=== PATIENT | female | born 1985 | race African-American/Black ===

== ENCOUNTER 2016-11-03 23:34 | Emergency (ER) | payer OTHER ==
[~2016-11-03] VITALS: Ht 167.6 cm; Wt 96.2 kg
[~2016-11-03 23:34] MED LIST: MOTRIN 600 MG600 MG PO; MOTRIN800 MG PO; OXYCODONE HCL10 MG PO; PERCOCET 325 MG1 TA2 PO; PERCOCET 325 MG1 TAB PO; PERCOCET 5-3251 EACH PO; PREDNISONE 20MG20 MG PO; PROVENTIL0.09 MG/A1 PO; ROBITUSSIN W/CO10 ML PO; SYMBICORT 80/4.1 PUF INH; ULTRAM(MONOGRAP50 MG PO; ZITHROMAX250 MG PO
[2016-11-04] MEDS ORDERED: MOBIC15 M1 PO (00:01)
--- NOTE | 2016-11-04 00:02 | ED UPPER/LOWER EXTREMITY COMPL ---
History of Present Illness General Chief Complaint: Upper Extremity Injury Stated Complaint: "PER PT I THINK I DISLOCATED MY LT SHOULDER" Source: patient Exam Limitations: no limitations Vital Signs & Intake/Output Vital Signs & Intake/Output Vital Signs Date Time Temp Pulse Resp B/P Pulse O2 O2 Flow FiO2 Ox Delivery Rate 11/03 2350 98 Room Air 11/03 2350 98.7 94 18 133/93 97 Room Air ED Intake and Output 11/04 0000 11/03 1200 Intake Total Output Total Balance Patient 212 lb Weight Allergies Coded Allergies: NO KNOWN ALLERGIES (02/02/14) Triage Note: PT FROM HOME C/O LEFT SHOULDER INJURY? PT STATES LAST YEAR HAD 2 SURGERIES ON LFA FOR HARDWARE AND MESH REMOVAL OF A HERNIA. PT STATES EVER SINCE THEN SHE HAS BEEN TELLING THE SURGEON THAT HER LEFT SHOULDER HURTS FROM THE SURGERY, BUT HE HAS DONE NOTHING. PT STATES THAT ITS HER BONE THAT BOTHERS HER. PT STATES NO INCIDENT OR TRAUMA CAUSED THE LEFT SHOULDER INJURY, 2 DAYS AGO PT DESCRIBES "POPPING" SOUNDS. MARGUERITE RUANO IN FOR EVAL Triage Nurses Notes Reviewed? yes Onset: Abrupt Duration: hour(s):, constant, continues in ED Timing: single episode today Severity: moderate, severe No Modifying Factors: none : No Patient currently breastfeeds: No HPI: 31-year-old female comes into emergency room for evaluation of left shoulder pain. Patient reports that she had surgery in her left forearm and had hardware removed. Patient reports that she's been having pain shooting from her forearm to her left shoulder. Pain in her shoulder with any type of range of motion. Sharp throbbing. Continuous. Denies any other associated symptoms. (JESUS EVERETT,ALDEN) Reconcile Medications Albuterol Sulfate (Proventil Hfa) 90 MCG HFA.AER.AD 2 PUF PO Q6-PRN PRN BREATHING PROBLEMS (Reported) Azithromycin (Zithromax) 250 MG TABLET 250 MG PO DAILY INFECTION TAKE 2 PILLS THE FIRST DAY Budesonide/Formoterol Fumara (Symbicort 80-4.5 Mcg Inhaler) 80 MCG/4.5 MCG PUF 2 PUFF INH BID ASTHMA/COPD (Reported) Ibuprofen (Motrin 600 MG Tab) 600 MG TABLET 1 TAB PO Q8 PRN PAIN Ibuprofen (Motrin) 800 MG TAB 1 TAB PO TID PRN PAIN Meloxicam (Mobic) 15 MG TABLET 1 TAB PO DAILY pain OXYCODONE HCL (Oxycodone HCl) 10 MG TAB 1 TAB PO Q6P PRN severe pain OXYCODONE HCL/ACETAMINOPHEN (Percocet 10-325 MG Tablet) 325 MG/10 MG TAB 1 TAB PO Q8 PRN PAIN OXYCODONE HCL/ACETAMINOPHEN (Percocet 5-325 MG Tablet) 325 MG/5 MG TAB 1-2 TAB PO Q4-6 PRN PRN PAIN SIXTEEN TABS... [id number] Oxycodone HCl/Acetaminophen (Percocet 5-325 MG Tablet) 1 EACH TABLET 1 TAB PO Q6HR PRN PAIN OXYCODONE HCL/ACETAMINOPHEN (Percocet 5-325 MG Tablet) 325 MG/5 MG TAB 1-2 TAB PO Q4-6 PRN PRN PAIN Oxycodone HCl/Acetaminophen (Percocet 5-325 MG Tablet) 5 MG-325 MG TABLET 1 TAB PO TID PRN PAIN OXYCODONE HCL/ACETAMINOPHEN (Percocet 5-325 MG Tablet) 325 MG/5 MG TAB 1-2 TAB PO Q4-6 PRN PRN PAIN Prednisone 20 MG TABLET 2 TAB PO DAILY INFLAMMATION Robitussin AC (Guaifenesin-Codeine Syrup) 200 MG-20 MG/10 ML LIQUID 10 ML PO Q6 PRN COUGH Tramadol HCl (Ultram) 50 MG TAB 1 TAB PO Q6 PRN pain (BRENDA AVALOS,JOE) Past History Travel History Traveled to [place] past 21 day No Medical History Any Pertinent Medical History? see below for history Neurological: NONE EENT: NONE Cardiovascular: NONE Respiratory: asthma Gastrointestinal: NONE Hepatic: NONE Renal: NONE Musculoskeletal: NONE Psychiatric: NONE Endocrine: NONE Blood Disorders: NONE Cancer(s): NONE MOBILE TESTER/Reproductive: NONE Surgical History Surgical History: N (Patient), left forearm surgery (per patient) Psychosocial History What is your primary language Albanian Tobacco Use: Current Daily Use Daily Tobacco Use Amount/Type: =< 4 Cigarettes daily ETOH Use: denies use Illicit Drug Use: denies illicit drug use Family History Hx Contributory? No (ALDEN CHAUDHARI) Review of Systems Review of Systems Constitutional: Reports: no symptoms. EENTM: Reports: no symptoms. Respiratory: Reports: no symptoms. Cardiovascular: Reports: no symptoms. Gastrointestinal/Abdominal: Reports: no symptoms. Genitourinary: Reports: no symptoms. Musculoskeletal: Reports: see HPI. Skin: Reports: no symptoms. Neurological/Psychological: Reports: no symptoms. Hematologic/Endocrine: Reports: no symptoms. Immunological: Reports: no symptoms. All Other Systems: Reviewed and Negative (ALDEN CHAUDHARI) Physical Exam Physical Exam General Appearance: well developed/nourished, mild distress Head: atraumatic Eyes: Bilateral: normal appearance. Ears, Nose, Throat: normal ENT inspection, hearing grossly normal Neck: normal inspection Cardiovascular/Respiratory: no respiratory distress Back: normal inspection Shoulder Left: soft tissue tenderness, limited range of motion Elbow Left: normal range of motion, normal inspection Hand Left: normal inspection Neurologic/Tendon: normal sensation, normal motor functions, normal tendon functions, responds to pain, no evidence tendon injury, no pulse deficit Skin: intact, normal color, warm/dry Lymphatic: no anterior cervical ko (ALDEN CHAUDHARI) Progress Differential Diagnosis: contusion, dislocation, DVT, fracture, gout, septic arthritis, sprain, tendon injury, rotator cuff tear, muscle strain Plan of Care: Orders Procedure Date/time Status URINE 11/03 2356 Complete Laboratory Tests 11/04/16 0015: Urine Test NEGATIVE Diagnostic Imaging: Viewed by Me: Radiology Read. Discussed w/RAD: Radiology Read. (ALDEN CHAUDHARI) Radiology Impression: PATIENT: YOANDY WINSTON PRESENT AGE: 31 PATIENT ACCOUNT NO: [id number] : 85 LOCATION: [facility] ORDERING PHYSICIAN: ALDEN EVERETT SERVICE DATE: 11/03/16 EXAM TYPE: RAD - XRY-SHOULDER COMPLETE-LEFT EXAMINATION: SHOULDER 3 VIEWS, LEFT CLINICAL INFORMATION: Left shoulder pain. COMPARISON: None. TECHNIQUE: AP views of the left shoulder were obtained in internal and external rotation. In addition, a Y view was obtained. FINDINGS: There are no fractures or dislocations. The humeral head is seated within a well-formed glenoid. The AC joint is intact. IMPRESSION: Unremarkable left shoulder radiographs. DICTATED BY: ROCÍO BASURTO MD DATE/TIME DICTATED:11/04/16127 MACHINE INSTALLER:NINA DATE/TIME TRANSCRIBED:127 CONFIDENTIAL, DO NOT COPY WITHOUT APPROPRIATE AUTHORIZATION. < Electronically signed in Other Vendor System> SIGNED BY: ROCÍO BASURTO MD 11/04/16 0132 (JOE GUTIERREZ MD) Departure Departure Disposition: HOME OR SELF CARE Condition: Stable Clinical Impression Primary Impression: Rotator cuff tear Referrals: SONIA LYMAN MD (PCP/Family) Departure Forms: Customer Survey General Discharge Information Prescriptions: Current Visit Scripts Meloxicam (Mobic) 1 TAB PO DAILY #10 TAB (ALDEN CHAUDHARI) Departure Time of Disposition: 012 Additional Instructions: Take the meloxican as prescribed. Follow-up with orthopedic doctor. Return if any concerns worsening symptoms. Ice. Rest. PA/SEO ENGINEER Co-Sign Statement Statement: ED Attending supervision documentation- [] I saw and evaluated the patient. I have also reviewed all the pertinent lab results and diagnostic results. I agree with the findings and the plan of care as documented in the PA's/SEO ENGINEER's documentation. [X] I have reviewed the ED Record and agree with the PA's/SEO ENGINEER's documentation. [] Additions or exceptions (if any) to the PAs/SEO ENGINEER's note and plan are summarized below: [] (BRENDA AVALOS,JOE)
--- NOTE | 2016-11-04 01:32 | RADIOLOGY REPORT ---
EXAMINATION: SHOULDER 3 VIEWS, LEFT CLINICAL INFORMATION: Left shoulder pain. COMPARISON: None. TECHNIQUE: AP views of the left shoulder were obtained in internal and external rotation. In addition, a Y view was obtained. FINDINGS: There are no fractures or dislocations. The humeral head is seated within a well-formed glenoid. The AC joint is intact. IMPRESSION: Unremarkable left shoulder radiographs.
[2016-11-04 01:42] VITALS: BP 130/88
== END 2016-11-04 01:42 ==
LOC: ERH 23:34
DX: M75.102 Unspecified rotator cuff tear or rupture of left shoulder, not specified as traumatic (principal)
CPT/HCPCS: 73030-LT; 81025